=== PATIENT | female | born 1960 | race Two or more races ===

== ENCOUNTER 2021-04-08 22:31 | Inpatient (IN) | payer OTHER ==
[~2021-04-08] VITALS: Ht 154.9 cm; Wt 74.5 kg
[2021-04-08] MEDS ORDERED: METF-1211 PO (22:43)
[2021-04-08 23:33] LABS: HEMATOCRIT 35.2 % (36-46); HEMOGLOBIN 11.2 g/dL (12.0-16.0); MEAN CORPUSCULAR HEMOGLOBIN 30.5 pg (26.0-34.0); MEAN CORPUSCULAR HGB CONC 31.9 G/dL (31.0-37.0); MEAN CORPUSCULAR VOLUME 95 fL (80-100); RED BLOOD CELL COUNT(AUTO) 3.69 MIL/uL (4.00-5.20); RED CELL DISTRIBUTION WIDTH 15.2 % (11.5-14.5)
[2021-04-08 23:39] LABS: ANION GAP 20 mmol/L (8-16); CALCIUM, TOTAL 8.5 mg/dL (8.8-10.5); CARBON DIOXIDE 14 mmol/L (22-29); CHLORIDE 102 mmol/L (98-107); CREATININE 2.65 mg/dL (0.60-1.30); GLOMERULAR FILTR. RATE CALC 18 mL/min (>60); GLUCOSE,RANDOM 94 mg/dL (70-110); POTASSIUM 4.4 mmol/L (3.5-5.1); SODIUM SERUM 136 mmol/L (136-145); UREA NITROGEN, BLOOD 42 mg/dL (7-18)
[2021-04-08] MEDS ORDERED: MAG HYDROX/AL HYDROX/SIMETH 30 ML SUSP UDCUP PO ONE (23:45)
[2021-04-08] MEDS ORDERED: FAMOTIDINE 10 MG/ML 2 ML VIAL IVP ONE (23:45)
[2021-04-08] MEDS ORDERED: SODIUM CHLORIDE 0.9% 1,000 ML IV ONE (23:45)
[2021-04-08] MEDS ORDERED: DEXAMETHASONE SOD PHOS 4 MG/ML VIAL IVP ONE (23:45)
[2021-04-08] MEDS ORDERED: ONDANSETRON HCL 4 MG/2 ML VIAL IVP ONE (23:45)
[2021-04-08] MEDS ORDERED: ACETAMINOPHEN 500 MG TABLET PO ONE (23:45)
[2021-04-08 23:50] LABS: D-DIMER 9.09 mg/L FEU (0.00-0.50); INR 1.9 (0.9-1.1); PROTHROMBIN TIME 19.1 SEC (9.4-11.6)
[2021-04-08 23:55] LABS: COVID AG,FIA SOURCE NASAL SWAB
[2021-04-08 23:58] LABS: ALANINE AMINOTRANSFERASE 33 U/L (12-78); ALBUMIN 2.1 g/dL (3.4-5.0); ALKALINE PHOSPHATASE 91 U/L (46-116); ASPARTATE AMINOTRANSFERASE 51 U/L (15-37); BILIRUBIN,TOTAL 3.1 mg/dL (0.1-1.0); C-REACTIVE PROTEIN QUANT 18.77 mg/dL (0.00-0.30); CREATINE KINASE, TOTAL ONLY 35 U/L (26-192); FERRITIN 163 ng/mL (8-252); LIPASE 14 U/L (73-393); TOTAL PROTEIN, SERUM 6.6 g/dL (6.4-8.2)
[2021-04-09] VITALS (10 sets, daily range): BP systolic 87–101; BP diastolic 4–62
[2021-04-09 00:05] LABS: B-TYPE NATRIURETIC PEPTIDE 315 pg/mL (0-100)
[2021-04-09 00:24] LABS: INFLUENZA TYPE A NEGATIVE FOR TYPE A (NEGATIVE); INFLUENZA TYPE B NEGATIVE FOR TYPE B (NEGATIVE)
[2021-04-09 00:33] LABS: LACTIC ACID 9.9 mmol/L (0.4-2.0)
[2021-04-09] MEDS ORDERED: SODIUM CHLORIDE 0.9% 1,000 ML IV ONE ×2 (00:45→04:15)
[2021-04-09 00:52] LABS: PLATELET COUNT (AUTO) 87 K/uL (150-450)
[2021-04-09 00:53] LABS: BAND NEUTROPHILS % (MANUAL) 11 % (0-5); EOSINOPHILS % (MANUAL) 6 % (1-6); LYMPHOCYTES % (MANUAL) 11 % (22-44); MONOCYTES % (MANUAL) 3 % (2-9); SEGMENTED NEUTROPHILS % 69 % (40-70)
[2021-04-09] MEDS ORDERED: PIPERACILLIN/TAZO 3.375 GM/D5W 50 ML IV ONE (02:00)
[2021-04-09] MEDS ORDERED: AZITHROMYCIN 500 MG/NS 250 ML IV ONE (02:00)
[2021-04-09] MEDS ORDERED: VANCOMYCIN HCL 1 GM/D5% WATER 200 ML IV ONE (02:00)
[2021-04-09 03:18] LABS: APPEARANCE,URINE SL CLOUDY (CLEAR); GLUCOSE, URINE (UA) NEGATIVE (NEGATIVE); KETONES,URINE TRACE mg/dL (NEGATIVE); LEUKOCYTE ESTERASE ,URINE SMALL (NEGATIVE); NITRATE,URINE NEGATIVE (NEGATIVE); OCCULT BLOOD,URINE NEGATIVE (NEGATIVE); PROTEIN,URINE POS 1+ (NEGATIVE); UROBILINOGEN,URINE 0.2 mg/dL (<=1.0)
[2021-04-09] MEDS ORDERED: ONDANSETRON HCL 4 MG/2 ML VIAL IVP PRN (03:30)
[2021-04-09] MEDS ORDERED: SODIUM CHLORIDE 0.9% 1,000 ML IV SCH (03:30)
[2021-04-09 03:33] LABS: BILIRUBIN,URINE PRELIM. POSITIVE (NEGATIVE)
[2021-04-09 03:37] LABS: BACTERIA,URINE Moderate /HPF (None Seen); RBC,URINE 0-2 /HPF (0-2)
[2021-04-09 04:13] LABS: CREATININE,URINE RANDOM 251.6 mg/dL (30.0-125.0)
[2021-04-09] MEDS ORDERED: SODIUM BICARBONATE [ADULT] 8.4% 50 MEQ/50 ML SYRINGE IVP ONE (04:15)
[2021-04-09] MEDS ORDERED: CLINDAMYCIN 900 MG/D5% WATER 50 ML IV ONE (04:15)
[2021-04-09] MEDS ORDERED: VANCOMYCIN HCL 1 GM/D5% WATER 200 ML IV PRN (04:15)
[2021-04-09 04:22] LABS: AMPHET/METH SCREEN,URINE POSITIVE (NEGATIVE); BARBITURATE SCREEN, URINE NEGATIVE (NEGATIVE); BENZODIAZEPINES SCREEN,URINE NEGATIVE (NEGATIVE); CANNABINOID SCREEN,URINE NEGATIVE (NEGATIVE); COCAINE SCREEN,URINE NEGATIVE (NEGATIVE); METHADONE SCREEN, URINE NEGATIVE (NEGATIVE); OPIATE SCREEN,URINE NEGATIVE (NEGATIVE); PHENCYCLIDINE SCREEN,URINE NEGATIVE (NEGATIVE)
[2021-04-09] MEDS ORDERED: DEXTROSE 50%-WATER 25 GM/50 ML SYRINGE IVP PRN (04:45)
[2021-04-09] MEDS ORDERED: INSULIN LISPRO 100 UNITS/ML SQ PRN (04:45)
[2021-04-09] MEDS ORDERED: SODIUM BICARBONATE 150 MEQ in DEXTROSE 5%-WATER 1,000 ML IV ONE (05:00)
[2021-04-09] MEDS ORDERED: SODIUM CHLORIDE 0.9% 100 ML ONE (07:37)
[2021-04-09] MEDS ORDERED: IOHEXOL 350 MG/ML 100 ML VIAL ONE (07:37)
[2021-04-09] MEDS ORDERED: VANCOMYCIN HCL 500 MG in DEXTROSE 5%-WATER 100 ML IV ONE (08:00)
[2021-04-09] MEDS: CEFEPIME HCL 1 GM in DEXTROSE 5%-WATER 50 ML IV SCH (08:46)
[2021-04-09] MEDS ORDERED: *CLINICAL-CEFEPIME DOSING CLINICAL ONE (09:30)
[2021-04-09] MEDS: FOLIC ACID 1 MG TABLET PO SCH (09:30)
[2021-04-09] MEDS: MULTIVITAMINS WITH MINERALS, THERAPEUTIC TABLET PO SCH (09:30)
[2021-04-09] MEDS: THIAMINE 100 MG TABLET PO SCH (09:30)
[2021-04-09] MEDS ORDERED: PENTETATE DTPA TC99M/MCL ISOTOPE 1 EA INJ INJ ONE (11:00)
[2021-04-09] MEDS ORDERED: MAA ALBUMIN AGGREGATED TC99M/UD<10MCL ISOTOPE 1 EA INJ INJ ONE (11:10)
[2021-04-09 12:26] LABS: CALCIUM, TOTAL 7.6 mg/dL (8.8-10.5); CREATININE 2.41 mg/dL (0.60-1.30); POTASSIUM 4.3 mmol/L (3.5-5.1)
[2021-04-09] MEDS ORDERED: ALBUMIN HUMAN 25%-12.5GM/50ML 50 ML IV ONE (13:30)
[2021-04-09] MEDS: ALBUMIN HUMAN 25%-25GM/100ML 100 ML IV SCH (17:40)
[2021-04-09] MEDS ORDERED: MANNITOL 25%-12.5 GM/50 ML VIAL IVP ONE (19:00)
[2021-04-09 19:47] LABS: CALCIUM, TOTAL 7.2 mg/dL (8.8-10.5); CREATININE 1.47 mg/dL (0.60-1.30); POTASSIUM 3.6 mmol/L (3.5-5.1)
[2021-04-09 19:54] LABS: ABG BASE EXCESS 0.8 mmol/L (-2.0-3.0); ABG CARBOXYHEMOGLOBIN 0.4 % (0.0-1.5); ABG HCO3 25.2 mmol/L (22.0-26.0); ABG METHEMOGLOBIN 0.3 % (0.0-1.5); ABG OXYGEN CONTENT 13.1 mL/dL (15.0-23.0); ABG OXYGEN SATURATION 97.8 % (95.0-98.0); ABG OXYHEMOGLOBIN 97.1 % (94.0-100.0); ABG PCO2 39 mmHg (35-45); ABG PH 7.424 (7.35-7.450); ABG TOTAL HEMOGLOBIN 9.5 G/dL (12.0-18.0); PO2, ARTERIAL BG 101.9 mmHg (79.0-87.0); SOURCE, BLOOD GAS ARTERIAL; TEMPERATURE, FAHRENHEIT, BG 98.1 FAHREN (96.0-98.6)
[2021-04-09 19:55] LABS: O2 DEVICE,BLOOD GAS NON REBREATHER (ROOM AIR); SITE, BLOOD GAS LFT RADIAL
[2021-04-10] MEDS: ALBUMIN HUMAN 25%-25GM/100ML 100 ML IV SCH ×4 (00:47→17:55)
[2021-04-10 05:26] LABS: HEMATOCRIT 27.8 % (36-46); HEMOGLOBIN 9.4 g/dL (12.0-16.0); MEAN CORPUSCULAR HGB CONC 33.7 G/dL (31.0-37.0); MEAN CORPUSCULAR VOLUME 92 fL (80-100); RED BLOOD CELL COUNT(AUTO) 3.02 MIL/uL (4.00-5.20); RED CELL DISTRIBUTION WIDTH 15.4 % (11.5-14.5)
[2021-04-10 05:33] LABS: ALBUMIN 2.7 g/dL (3.4-5.0); BILIRUBIN,DIRECT 3.2 mg/dL (0.00-0.20); CALCIUM, TOTAL 7.6 mg/dL (8.8-10.5); CREATININE 2.03 mg/dL (0.60-1.30); MAGNESIUM 1.9 mg/dL (1.80-2.40); PHOSPHORUS 4.8 mg/dL (2.5-4.9); POTASSIUM 3.2 mmol/L (3.5-5.1); TOTAL PROTEIN, SERUM 5.7 g/dL (6.4-8.2)
[2021-04-10 06:39] LABS: INR 2.1 (0.9-1.1)
[2021-04-10] MEDS: CLINDAMYCIN 600 MG/D5% WATER 50 ML IV SCH ×3 (06:43→21:36)
[2021-04-10 06:49] LABS: PLATELET COUNT (AUTO) 58 K/uL (150-450)
[2021-04-10 06:52] LABS: SEGMENTED NEUTROPHILS % 70 % (40-70)
[2021-04-10 06:53] LABS: BAND NEUTROPHILS % (MANUAL) 12 % (0-5); EOSINOPHILS % (MANUAL) 3 % (1-6); LYMPHOCYTES % (MANUAL) 11 % (22-44); MONOCYTES % (MANUAL) 4 % (2-9)
[2021-04-10] MEDS: CEFEPIME HCL 1 GM in DEXTROSE 5%-WATER 50 ML IV SCH ×2 (08:46→09:31)
[2021-04-10] MEDS ORDERED: NOREPINEPHRINE 4 MG/D5%-WATER 250 ML IV PRN (09:00)
[2021-04-10] MEDS: FOLIC ACID 1 MG TABLET PO SCH (09:00)
[2021-04-10] MEDS: MULTIVITAMINS WITH MINERALS, THERAPEUTIC TABLET PO SCH (09:00)
[2021-04-10] MEDS: THIAMINE 100 MG TABLET PO SCH (09:00)
[2021-04-10 09:26] LABS: GLUCOSE,POINT OF CARE 66 MG/DL (70-110)
[2021-04-10 09:27] LABS: ABG BASE EXCESS 6.7 mmol/L (-2.0-3.0); ABG CARBOXYHEMOGLOBIN 0.7 % (0.0-1.5); ABG HCO3 29.9 mmol/L (22.0-26.0); ABG METHEMOGLOBIN 0.1 % (0.0-1.5); ABG OXYGEN SATURATION 91.4 % (95.0-98.0); ABG OXYHEMOGLOBIN 90.7 % (94.0-100.0); ABG PCO2 44 mmHg (35-45); ABG PH 7.463 (7.35-7.450); ABG TOTAL HEMOGLOBIN 9.4 G/dL (12.0-18.0); PO2, ARTERIAL BG 62.3 mmHg (79.0-87.0); SOURCE, BLOOD GAS ARTERIAL; TEMPERATURE, FAHRENHEIT, BG 98.6 FAHREN (96.0-98.6)
[2021-04-10 09:28] LABS: ABG A-A DIFF O2 317.5 mmHg (10-20.0); SITE, BLOOD GAS LFT RADIAL
[2021-04-10 09:29] LABS: O2 DEVICE,BLOOD GAS OXYMIZER (ROOM AIR)
[2021-04-10] MEDS: POTASSIUM CHL 10 MEQ/WATER 50 ML IV SCH ×4 (09:30→12:31)
[2021-04-10 10:50] LABS: GLUCOSE,POINT OF CARE 143 MG/DL (70-110)
[2021-04-10 12:31] LABS: GLUCOSE,POINT OF CARE 135 MG/DL (70-110)
[2021-04-10] MEDS ORDERED: PHYTONADIONE 10 MG/1 ML AMP SQ SCH (12:45)
[2021-04-10] MEDS ORDERED: DEXTROSE 5%-0.9% SODIUM CHL 1,000 ML IV SCH (13:15)
[2021-04-10] MEDS ORDERED: CAMPHOR/MENTHOL/PHENOL 10 GM OINTMENT TP PRN (15:30)
[2021-04-10 16:16] LABS: GLUCOMETER DEV NAME(LOC) ERT.5; GLUCOSE,POINT OF CARE 143 MG/DL (70-110)
[2021-04-10] MEDS ORDERED: DEXMEDETOMIDINE HCL 400 MCG in SODIUM CHLORIDE 0.9% 96 ML IV PRN (17:15)
[2021-04-10 22:21] LABS: GLUCOMETER DEV NAME(LOC) ERT.5; GLUCOSE,POINT OF CARE 142 MG/DL (70-110)
[2021-04-11] MEDS: LORazepam 2 MG/ML VIAL IVP PRN ×2 (00:53→04:53)
[2021-04-11] MEDS: MORPHINE SULFATE 2 MG/ML SYRINGE IVP PRN ×2 (01:13→04:52)
[2021-04-11] MEDS ORDERED: ATROPINE SULFATE 0.1 MG/ML 10 ML SYRINGE IVP ONE ×2 (02:47→02:57)
[2021-04-11 06:22] LABS: GLUCOMETER DEV NAME(LOC) ERT.5; GLUCOSE,POINT OF CARE 129 MG/DL (70-110)
[2021-04-11 15:02] VITALS: BP 92/39
[2021-04-11 17:06] LABS: LEGIONELLA PNEUMO AG URINE Negative (Negative); S PNEUMO SOURCE Urine; STREP PNEUMONIAE AG URINE Positive (Negative)
[2021-04-11] MEDS ORDERED: HEPARIN SODIUM,PORCINE 1,000 UNITS/ML VIAL IVP ONE (17:19)
[2021-04-11] MEDS ORDERED: ALBUMIN HUMAN 25%-12.5GM/50ML IV BOTTLE IV ONE (17:19)
[2021-04-11] MEDS ORDERED: MetFORMIN HCL 500 MG TABLET PO SCH (17:30)
== END 2021-04-11 17:20 | DRG 720 ==
LOC: EMS 22:31 → ICUN 04-09 03:27 → UNDOADMIN 04-10 07:47 → ICUN 04-10 07:48 → 6N 04-11 14:08 → UNDODISIN 04-11 17:20
PROVIDERS: ADMIT Internal Medicine; ATTEND Internal Medicine
PROC: 02HV33Z Insertion of Infusion Device into Superior Vena Cava, Percutaneous Approach (ICD-10-PCS; principal; 2021-04-09)
PROC: B548ZZA Ultrasonography of Superior Vena Cava, Guidance (ICD-10-PCS; 2021-04-09)
PROC: CB121ZZ Planar Nuclear Medicine Imaging of Lungs and Bronchi using Technetium 99m (Tc-99m) (ICD-10-PCS; 2021-04-09)
PROC: 5A1D70Z Performance of Urinary Filtration, Intermittent, Less than 6 Hours Per Day (ICD-10-PCS; 2021-04-09)
DX: A41.9 Sepsis, unspecified organism (principal); J96.01 Acute respiratory failure with hypoxia; I81 Portal vein thrombosis; J86.9 Pyothorax without fistula; R34 Anuria and oliguria; D61.818 Other pancytopenia; J91.8 Pleural effusion in other conditions classified elsewhere; K70.40 Alcoholic hepatic failure without coma; G92.8 Other toxic encephalopathy; I95.9 Hypotension, unspecified; Z20.822 Contact with and (suspected) exposure to COVID-19; D68.9 Coagulation defect, unspecified; K59.00 Constipation, unspecified; N17.9 Acute kidney failure, unspecified; R68.0 Hypothermia, not associated with low environmental temperature; J18.9 Pneumonia, unspecified organism; Z66 Do not resuscitate; F17.210 Nicotine dependence, cigarettes, uncomplicated; E87.4 Mixed disorder of acid-base balance; F15.10 Other stimulant abuse, uncomplicated; K76.6 Portal hypertension; K70.30 Alcoholic cirrhosis of liver without ascites; E87.6 Hypokalemia; E11.9 Type 2 diabetes mellitus without complications; I10 Essential (primary) hypertension; R65.20 Severe sepsis without septic shock; F10.10 Alcohol abuse, uncomplicated; Z79.84 Long term (current) use of oral hypoglycemic drugs; Z51.5 Encounter for palliative care; Z79.899 Other long term (current) drug therapy
CPT/HCPCS: 36556; 36600; 71045; 80048; 80053; 81001; 82140; 82248; 82271; 82550; 82570; 82728; 82805; 82962; 83605; 83690; 83735; 83880; 84100; 84145; 84300; 84484; 85025; 85379; 85610; 85730; 86140; 87086; 87340; 87449; 87804; 87899; 90935; 93005; 99291; G0378; G0480; J0456; J0461; J0692; J1100; J1644; J1815; J2060; J2150; J2270; J2405; J2543; J3370; J3430; J3480; J3490; J7030; J7042; J7050; J7060; P9046; P9047; Q9967; 36415-L1; 36415-TC; U0003